=== PATIENT | male | born 2000 | race Two or more races ===

== ENCOUNTER 2022-01-22 16:00 | Observation (INO) ==
[2022-01-22 16:31] LABS: Basophils # (auto) 0.02 K/uL (0-0.2); Basophils % (auto) 0.2 %; Eosinophils # (auto) 0.19 K/uL (0-0.5); Eosinophils % (auto) 1.8 %; Hematocrit (blood only) 45.4 % (42-52); Hemoglobin 15.8 g/dL (14.0-18.0); Immature Granulocytes # (auto) 0.01 K/uL (0.00-0.02); Immature Granulocytes % (auto) 0.1 %; Lymphocytes % (auto) 14.1 %; Mean Corpuscular Hemoglobin 29.2 pg (25-34); Mean Corpuscular Hgb Conc 34.8 g/dL (32-36); Mean Corpuscular Volume 83.8 fL (80-100); Mean Platelet Volume 8.9 fL (7.4-10.4); Monocytes # (auto) 0.63 K/uL (0.11-0.59); Monocytes % (auto) 5.9 %; Neutrophils # (auto) 8.28 K/uL (1.4-6.5); Neutrophils % (auto) 77.9 %; Platelet Count 341 K/uL (130-400); RDW Coefficient of Variation 13.4 % (11.5-14.5); RDW Standard Deviation 40.3 fL (36.4-46.3); Red Blood Count 5.42 M/uL (4.7-6.1); White Blood Count 10.63 K/uL (4.8-10.8)
[2022-01-22] MEDS ORDERED: SODIUM CHLORIDE 0.9% 1000ML 2,000 ML IV ONE (16:44)
[2022-01-22] MEDS ORDERED: ONDANSETRON INJ 2 MG/ML 2 ML VIAL IV STA (16:44)
--- NOTE | 2022-01-22 16:47 | Emergency Department Note ---
Impression & Plan Acute pancreatitis, Abdominal pain, Nausea ED Provider Note NAME: JAY PRATT AGE: 21 SEX: M : 2000 ARRIVES VIA: Walk-In INFORMANT: Patient ED PROVIDER(S): Nathanael Valentine DO CHIEF COMPLAINT: abdominal pain HPI: Patient is a 21-year-old male who presents the ER for right mid/upper quadrant abdominal pain. Patient notes all of his symptoms started this morning when he woke up. His pain is about a 4 out of 10. He did take some Pepto- Bismol but believes he threw this back up. He denies any dysuria, urgency, or frequency. No diarrhea. He has not been around a bit has been sick. No previous abdominal surgeries. No other exacerbating or remitting factors. No fevers. ROS: See above HPI for pertinent positives & negatives. A total of 10 systems reviewed and were otherwise negative. PAST MEDICAL HISTORY:See Below PAST SURGICAL HISTORY:See Below FAMILY HISTORY:See Below SOCIAL HISTORY:See Below HOME MEDICATIONS:See Below ALLERGIES:See Below VITALS:See Below PHYSICAL EXAMINATION: GENERAL: Sitting up in bed, alert, well appearing, well nourished, no distress, non-toxic EYE EXAM: normal conjunctiva. OROPHARYNX: no exudate, no erythema, lips, buccal mucosa, and tongue normal and mucous membranes are moist NECK: supple, no nuchal rigidity, no adenopathy, non-tender LUNGS: Clear to auscultation. Normal chest wall mechanics HEART: no murmurs, S1 normal and S2 normal ABDOMEN: abdomen soft, mild tenderness in the right mid belly/epigastric region and right lower quadrant, normo-active bowel sounds, no masses, no rebound or guarding. UPPER EXTREMITIES: upper extremities are grossly normal. LOWER EXTREMITIES: No pitting edema. NEURO EXAM: Normal sensorium, cranial nerves II-XII grossly intact, normal speech, no gross weakness of arms, no gross weakness of legs. MEDICAL DECISION MAKING: Patient is a 21-year-old male who presents the ER for abdominal pain and nausea vomiting. IV was established blood work was obtained. Labs show no significant leukocytosis or anemia. BMP along with LFTs shows a mild transaminitis. T bili was normal. Lipase was 4 times upper limit at 480. UA was clean. Covid was negative. CT abdomen pelvis confirms pancreatitis. Patient was given IV fluids and morphine. He was updated bedside. Discussed with Dr. Jose Miguel Villarreal for further evaluation. Updated mom as well per the patient's request. Triage Nursing notes reviewed. Limited review of prior medical records performed Vital Signs: reviewed and remarkable for no significant abnormalities Differential diagnosis: Differential diagnoses includes but is not limited to gastritis, peptic ulcer disease, GERD, gallbladder disease, pancreatitis, small bowel obstruction, acute coronary syndrome, pericarditis, ischemic bowel, irritable bowel disease, irritable bowel syndrome, appendicitis, diverticulitis, malignancy, hernia, urinary tract infection, torsion, perforation, trauma, infectious. ER treatment provided: See below Diagnostics interpreted by me: ECG: none Cardiac Monitoring: An order was placed for continuous cardiac monitoring. The monitor shows a rate of 82 with sinus rhythm. Laboratory studies: As stated above and show below. Imaging studies: CT abdomen pelvis confirms pancreatitis Consultation(s): none Critical Care: None Past Med/Surg History Social History Smoking Status: Current every day smoker Tobacco Type: E-cigarettes / Vaping Preferred Language: Belgian Feels Safe at Home: Yes Results & Data (ED) Vital Signs Vital Signs - 24 hr 01/22/22 16:04 01/22/22 18:10 Temperature 36.2 C L Temperature Source Temporal Artery Scan Pulse Rate 86 Pulse Rate [Right Finger] 73 Pulse Rhythm Regular Pulse Strength Normal Respiratory Rate 20 16 Respiratory Effort / Characteristics Non-Labored Spontaneous Respiratory Depth Normal Respiratory Pattern Regular Blood Pressure 129/78 Blood Pressure [Right Arm] 126/70 Blood Pressure Mean 95 Blood Pressure Mean [Right Arm] 88 Blood Pressure Position Sitting Pulse Oximetry 96 97 Oxygen Delivery Method Room Air Sepsis Recent Fever Within 48 Hours No Sepsis New/Unexplained Change in Mental Status No Sepsis Action Taken by Nursing No Action Required Laboratory Data Result diagrams: 01/22/22 16:19 01/22/22 16:19 Lab Results 01/22/22 01/22/22 01/22/22 Range/Units 16:19 16:19 16:19 WBC 10.63 (4.8-10.8) K/uL RBC 5.42 (4.7-6.1) M/uL Hgb 15.8 (14.0-18.0) g/dL Hct 45.4 (42-52) % MCV 83.8 (80-100) fL MCH 29.2 (25-34) pg MCHC 34.8 (32-36) g/dL RDW Std Deviation 40.3 (36.4-46.3) fL RDW Coeff of Isabelle 13.4 (11.5-14.5) % Plt Count 341 (130-400) K/uL MPV 8.9 (7.4-10.4) fL Immature Gran % (Auto) 0.1 % Neut % (Auto) 77.9 % Lymph % (Auto) 14.1 % Reynolds % (Auto) 5.9 % Eos % (Auto) 1.8 % Baso % (Auto) 0.2 % Neut # (Auto) 8.28 H (1.4-6.5) K/uL Lymph # (Auto) 1.50 (1.2-3.4) K/uL Reynolds # (Auto) 0.63 H (0.11-0.59) K/uL Eos # (Auto) 0.19 (0-0.5) K/uL Baso # (Auto) 0.02 (0-0.2) K/uL Immature Gran # (Auto) 0.01 (0.00-0.02) K/uL Sodium 138 (136-145) mmol/L Potassium 3.9 (3.5-5.1) mmol/L Chloride 103 (98-107) mmol/L Carbon Dioxide 27 (21-32) mmol/L Anion Gap 8 (3-11) BUN 11 (6-23) mg/dl Creatinine 0.79 (0.6-1.4) mg/dl Est Cr Clr Drug Dosing 178.0 ml/min Est GFR ( Amer) > 150.0 ml/min Est GFR (Non-Af Amer) 130.2 ml/min BUN/Creatinine Ratio 13.9 (10-20) Glucose 98 (70-99(Fasting)) mg/dl Calcium 9.8 (8.5-10.1) mg/dl Total Bilirubin 0.6 (0.2-1.0) mg/dl AST 57 H (13-39) U/L ALT 70 H (7-52) U/L Alkaline Phosphatase 95 (34-104) U/L Total Protein 7.5 (6.0-8.3) gm/dl Albumin 4.7 (3.4-5.0) gm/dl Globulin 2.8 (2.5-4.0) gm/dl Albumin/Globulin Ratio 1.7 (0.9-2) Triglycerides 115 (0-150) mg/dl Lipase 479 H (11-82) U/L Urine Color Urine Appearance (Clear) Urine pH (4.5-7.5) Ur Specific Lapel (1.000-1.030) Urine Protein (Negative) Urine Glucose (UA) (Negative) Urine Ketones (Negative) Urine Blood (Negative) Urine Nitrite (Negative) Urine Bilirubin (Negative) Urine Urobilinogen (Negative) Ur Leukocyte Esterase (Negative) SARS-CoV-2, RNA, NAAT (NEGATIVE) 01/22/22 01/22/22 Range/Units 16:53 18:07 WBC (4.8-10.8) K/uL RBC (4.7-6.1) M/uL Hgb (14.0-18.0) g/dL Hct (42-52) % MCV (80-100) fL MCH (25-34) pg MCHC (32-36) g/dL RDW Std Deviation (36.4-46.3) fL RDW Coeff of Isabelle (11.5-14.5) % Plt Count (130-400) K/uL MPV (7.4-10.4) fL Immature Gran % (Auto) % Neut % (Auto) % Lymph % (Auto) % Reynolds % (Auto) % Eos % (Auto) % Baso % (Auto) % Neut # (Auto) (1.4-6.5) K/uL Lymph # (Auto) (1.2-3.4) K/uL Reynolds # (Auto) (0.11-0.59) K/uL Eos # (Auto) (0-0.5) K/uL Baso # (Auto) (0-0.2) K/uL Immature Gran # (Auto) (0.00-0.02) K/uL Sodium (136-145) mmol/L Potassium (3.5-5.1) mmol/L Chloride (98-107) mmol/L Carbon Dioxide (21-32) mmol/L Anion Gap (3-11) BUN (6-23) mg/dl Creatinine (0.6-1.4) mg/dl Est Cr Clr Drug Dosing ml/min Est GFR ( Amer) ml/min Est GFR (Non-Af Amer) ml/min BUN/Creatinine Ratio (10-20) Glucose (70-99(Fasting)) mg/dl Calcium (8.5-10.1) mg/dl Total Bilirubin (0.2-1.0) mg/dl AST (13-39) U/L ALT (7-52) U/L Alkaline Phosphatase (34-104) U/L Total Protein (6.0-8.3) gm/dl Albumin (3.4-5.0) gm/dl Globulin (2.5-4.0) gm/dl Albumin/Globulin Ratio (0.9-2) Triglycerides (0-150) mg/dl Lipase (11-82) U/L Urine Color Yellow Urine Appearance Clear (Clear) Urine pH 8.0 H (4.5-7.5) Ur Specific Lapel 1.012 (1.000-1.030) Urine Protein Negative (Negative) Urine Glucose (UA) Negative (Negative) Urine Ketones Negative (Negative) Urine Blood Negative (Negative) Urine Nitrite Negative (Negative) Urine Bilirubin Negative (Negative) Urine Urobilinogen Negative (Negative) Ur Leukocyte Esterase Negative (Negative) SARS-CoV-2, RNA, NAAT NEGATIVE (NEGATIVE) Administered Medications Lactated Ringer's (Lr) 1,000 mls @ 200 mls/hr IV .Q5H GERALDINE Stop: 02/21/22 20:59 Last Admin: 01/22/22 21:33 Dose: 200 mls/hr Documented by: [id number] Discontinued Medications Sodium Chloride (Nss 1000ml) 2,000 mls @ 999 mls/hr IV .Q2H1M ONE Stop: 01/22/22 18:44 Last Infusion: 01/22/22 18:07 Dose: 0 mls/hr Documented by: [id number] Admin: 01/22/22 16:54 Dose: 999 mls/hr Documented by: [id number] Ioversol (Optiray 320 100ml) 94 ml IV ONCE ONE Stop: 01/22/22 17:18 Last Admin: 01/22/22 17:18 Dose: 94 ml Documented by: [id number] Morphine Sulfate (Morphine Sulfate 4 Mg/Ml 1 Ml Carp\Vial) 4 mg IV NOW STA Stop: 01/22/22 18:09 Last Admin: 01/22/22 18:23 Dose: 4 mg Documented by: [id number] Ondansetron HCl (Ondansetron Inj 2 Mg/Ml 2 Ml Vial) 4 mg IV NOW STA Stop: 01/22/22 16:45 Last Admin: 01/22/22 16:54 Dose: 4 mg Documented by: [id number] Imaging Data Radiologist's Impression: Abdomen/Pelvis CT 01/22/22 16:44 CT SCAN OF THE ABDOMEN AND PELVIS WITH IV CONTRAST CLINICAL HISTORY: Right-sided abdominal pain. COMPARISON STUDY: No priors. TECHNIQUE: Following the IV administration of 94 cc of Optiray 320, CT scan of the abdomen and pelvis is performed from the lung bases to the proximal femora. Images are reviewed in the axial, sagittal, and coronal planes. IV contrast was administered without complication. A dose lowering technique was utilized adhering to the principles of ALARA. CT DOSE: 498.91 mGy.cm FINDINGS: Lung bases: The heart is normal in size and without pericardial effusion. The lung bases are clear. Liver: The contrast-enhanced liver is enlarged, measuring 20.5 cm in length. The liver demonstrates diminished attenuation consistent with hepatic steatosis. Fatty sparing is noted adjacent to gallbladder fossa. There is no intrahepatic biliary ductal dilatation. The hepatic veins and portal veins are patent. Gallbladder: Unremarkable. Spleen: Normal in size and attenuation. Pancreas: There is infiltration and fluid centered around the pancreatic head which appears edematous, with fluid tracking inferiorly in the intraperitoneal space. The gland enhances homogeneously, and the pancreatic duct is normal in caliber. No organized peripancreatic fluid collection is identified. The splenic vein is patent. Adrenal glands: Unremarkable. Kidneys: The contrast enhanced kidneys are normal in size and without hydron ephrosis. The kidneys enhance symmetrically. Abdominal vasculature: The abdominal aorta is normal in course and caliber. Bowel: There is no bowel obstruction. The appendix is well-visualized and normal. Peritoneum: No intraperitoneal free air is identified. There is trace free fluid in the pelvis. There is a fat-containing umbilical hernia. Lymphadenopathy: None. Pelvic viscera: The bladder is decompressed and appears circumferentially thick walled. The prostate and seminal vesicles are normal as visualized. Skeletal structures: No lytic or blastic lesions are seen. IMPRESSION: 1. Findings suggest acute pancreatitis. Correlate with clinical findings and serum amylase/lipase levels. 2. The gland enhances throughout and there is no organized peripancreatic fluid collection. 3. Trace free fluid in the pelvis is likely reactive. 3. Hepatomegaly and hepatic steatosis. 4. The bladder is decompressed and appears circumferentially thick walled. Correlate with clinical findings and urinalysis. 5. Additional findings as above. ACT 112: Negative or not required by law. Electronically signed by: Ethan Joseph M.D. 01/22/2022 5:44 PM Liver Ultrasound 01/22/22 18:48 ULTRASOUND RIGHT UPPER QUADRANT ABDOMEN CLINICAL HISTORY: Pancreatitis. Elevated hepatic transaminases. COMPARISON STUDY: Abdominal CT dated 01/22/2022. TECHNIQUE: Real-time, grayscale, and color flow sonography of the right upper quadrant of the abdomen was performed. Images are reviewed in the transverse and longitudinal planes. FINDINGS: Liver: The liver is top normal in size and demonstrates increased echotexture suggesting steatosis. There is no intrahepatic biliary ductal dilatation. The main portal vein is patent. Gallbladder: The gallbladder is normal in appearance. No gallstones are identified. There is no gallbladder wall thickening or pericholecystic fluid. A sonographic Pérez's sign is reportedly absent. The common bile duct measures up to 0.2 cm in diameter. Pancreas: Visualized portions of the pancreatic head and body are normal in appearance. The splenic vein is patent. Right kidney: Survey images of the right kidney demonstrate normal size and echotexture. There is no hydronephrosis. Ascites: None. IMPRESSION: 1. No gallstones are identified. 2. Mild hepatic steatosis. ACT 112: Negative or not required by law. Electronically signed by: Ethan Joseph M.D. 01/22/2022 8:27 PM Discharge Plan Visit Data Chief Complaint: Vomiting Stated Complaint: VOMITING, UPPER ABD PAIN ED Provider: Nathanael Valentine Discharge Problem: Acute pancreatitis, Abdominal pain, Nausea Patient Disposition: Admitted As Inpatient Discharge Instructions Interventions: ED Discharge Assessment Last Done: 01/22/22 19:51
[2022-01-22 16:49] LABS: Alanine Aminotransferase 70 U/L (7-52); Albumin Globulin Ratio 1.7 (0.9-2); Albumin Level 4.7 gm/dl (3.4-5.0); Alkaline Phosphatase 95 U/L (34-104); Anion Gap 8 (3-11); Aspartate Aminotransferase 57 U/L (13-39); BUN Creatinine Ratio 13.9 (10-20); Bilirubin,Total 0.6 mg/dl (0.2-1.0); Blood Urea Nitrogen 11 mg/dl (6-23); Calcium 9.8 mg/dl (8.5-10.1); Carbon Dioxide 27 mmol/L (21-32); Chloride 103 mmol/L (98-107); Est GFR (African American) > 150.0 ml/min; Est GFR (Non-African American) 130.2 ml/min; Globulin 2.8 gm/dl (2.5-4.0); Glucose 98 mg/dl (70-99(Fasting)); Lipase 479 U/L (11-82); Potassium 3.9 mmol/L (3.5-5.1); Sodium 138 mmol/L (136-145); Total Protein 7.5 gm/dl (6.0-8.3)
[2022-01-22 17:15] LABS: Appearance Urine Clear (Clear); Bilirubin Urine Negative (Negative); Blood Urine Negative (Negative); Color Urine Yellow; Glucose Urine UA Negative (Negative); Ketones Urine Negative (Negative); Leukocyte Esterase Urine Negative (Negative); Nitrite Urine Negative (Negative); Protein Urine Negative (Negative); Specific Gravity Urine 1.012 (1.000-1.030); Urobilinogen Urine Negative (Negative)
[2022-01-22] MEDS ORDERED: OPTIRAY 320 100ml IV ONE (17:17)
--- NOTE | 2022-01-22 17:46 | CT Scan Report ---
CT SCAN OF THE ABDOMEN AND PELVIS WITH IV CONTRAST CLINICAL HISTORY: Right-sided abdominal pain. COMPARISON STUDY: No priors. TECHNIQUE: Following the IV administration of 94 cc of Optiray 320, CT scan of the abdomen and pelvi s is performed from the lung bases to the proximal femora. Images are reviewed in the axial, sagittal , and coronal planes. IV contrast was administered without complication. A dose lowering technique wa s utilized adhering to the principles of ALARA. CT DOSE: 498.91 mGy.cm FINDINGS: Lung bases: The heart is normal in size and without pericardial effusion. The lung bases are clear. Liver: The contrast-enhanced liver is enlarged, measuring 20.5 cm in length. The liver demonstrates d iminished attenuation consistent with hepatic steatosis. Fatty sparing is noted adjacent to gallbladd er fossa. There is no intrahepatic biliary ductal dilatation. The hepatic veins and portal veins are patent. Gallbladder: Unremarkable. Spleen: Normal in size and attenuation. Pancreas: There is infiltration and fluid centered around the pancreatic head which appears edematous , with fluid tracking inferiorly in the intraperitoneal space. The gland enhances homogeneously, and the pancreatic duct is normal in caliber. No organized peripancreatic fluid collection is identified. The splenic vein is patent. Adrenal glands: Unremarkable. Kidneys: The contrast enhanced kidneys are normal in size and without hydronephrosis. The kidneys enh ance symmetrically. Abdominal vasculature: The abdominal aorta is normal in course and caliber. Bowel: There is no bowel obstruction. The appendix is well-visualized and normal. Peritoneum: No intraperitoneal free air is identified. There is trace free fluid in the pelvis. There is a fat-containing umbilical hernia. Lymphadenopathy: None. Pelvic viscera: The bladder is decompressed and appears circumferentially thick walled. The prostate and seminal vesicles are normal as visualized. Skeletal structures: No lytic or blastic lesions are seen. IMPRESSION: 1. Findings suggest acute pancreatitis. Correlate with clinical findings and serum amylase/lipase lev els. 2. The gland enhances throughout and there is no organized peripancreatic fluid collection. 3. Trace free fluid in the pelvis is likely reactive. 3. Hepatomegaly and hepatic steatosis. 4. The bladder is decompressed and appears circumferentially thick walled. Correlate with clinical fi ndings and urinalysis. 5. Additional findings as above. ACT 112: Negative or not required by law. Electronically signed by: Ethan Joseph M.D. 01/22/2022 5:44 PM
[2022-01-22] MEDS ORDERED: MoRPHine SULFATE 4 MG/ML 1 ML CARP\\VIAL IV STA (18:08)
--- NOTE | 2022-01-22 18:52 | History & Physical Report ---
Date of Service January 22, 2022 Assessment & Plan (1) Acute pancreatitis: Plan: Suspect alcohol induced since he was just on Spring break and triglycerides and no gallstones or CBD dilatation on CT for US liver. NSS 2L bolus given in ER. Continue IV fluids with LR @ 200ml/hr overnight Can start on clear liquids Repeat labs in AM Plan: VTE Prophylaxis - low risk Diet - clear liquids Disposition - observation to med/surg Admission and Anticipated Discharge Date Admission Date: January 22, 2022 History of Present Illness Chief Complaint: Abdominal pain [facility] Jeffery Sewell is a 21 year old male who presents to the ER with nausea, vomiting and abdominal pain. He reports this started this morning when he woke up. Abdominal pain is epigastric, worse on palpation, no radiation, severity 4/10. No change in bowels, melena or bright red blood in stool. In the ER CT and elevated lipase concerning for acute pancreatitis. He reports no prior episodes of this. No autoimmune conditions or family history. He does note excessive alcohol use over spring but not abdominal pain during that time. He was referred to medicine for admission and ongoing management of pancreatitis. Past Med/Surg History Social History Smoking Status: Never smoker Tobacco Type: E-cigarettes / Vaping Hx Alcohol Use: Yes Hx Substance Use: No Preferred Language: [place] Communication Ability: Effective Ditch Worker Required: No Beliefs That Will Affect Care: None Current Living Situation: Other Current Living Situation Comment: college student, has roommate Other Information That Helps Us Care for You: No Feels Safe at Home: Yes Safety Concerns: Feels Safe At This Time Assistive Devices: None Review of Systems Review of Systems: All systems reviewed & are unremarkable except as noted in HPI & below Physical Exam Constitutional: WD/WN, vitals as above Eyes: + anicteric sclerae; normal pupil size Respiratory: normal respiratory effort, lungs clear to auscultation Cardiovascular: RRR, no murmur, no edema Gastrointestinal (Abdomen): Inspection/Auscultation: normal bowel sounds Percussion/Palpation: + abdomen tender (epigastric) and abdomen soft; no guarding and abdomen not rigid Musculoskeletal: no cyanosis or clubbing, extremities motor strength 5/5 Skin: no rashes, warm and dry Neurologic: moves all extremities and awake; not confused Psychiatric: A+Ox3, euthymic affect Genitourinary: no CVA tenderness Results & Data Results & Data ([facility]) Vital Signs (Past 12 Hours) Vital Signs Temp Pulse Pulse Resp BP BP Pulse Ox 01/22/22 18:10 73 16 126/70 97 01/22/22 16:04 36.2 C L 86 20 129/[address] SCAN OF THE ABDOMEN AND PELVIS WITH IV CONTRAST CLINICAL HISTORY: Right-sided abdominal pain. COMPARISON STUDY: No priors. TECHNIQUE: Following the IV administration of 94 cc of Optiray 320, CT scan of the abdomen and pelvis is performed from the lung bases to the proximal femora. Images are reviewed in the axial, sagittal, and coronal planes. IV contrast was administered without complication. A dose lowering technique was utilized adhering to the principles of ALARA. CT DOSE: 498.91 mGy.cm FINDINGS: Lung bases: The heart is normal in size and without pericardial effusion. The lung bases are clear. Liver: The contrast-enhanced liver is enlarged, measuring 20.5 cm in length. The liver demonstrates diminished attenuation consistent with hepatic steatosis. Fatty sparing is noted adjacent to gallbladder fossa. There is no intrahepatic biliary ductal dilatation. The hepatic veins and portal veins are patent. Gallbladder: Unremarkable. Spleen: Normal in size and attenuation. Pancreas: There is infiltration and fluid centered around the pancreatic head which appears edematous, with fluid tracking inferiorly in the intraperitoneal space. The gland enhances homogeneously, and the pancreatic duct is normal in caliber. No organized peripancreatic fluid collection is identified. The splenic vein is patent. Adrenal glands: Unremarkable. Kidneys: The contrast enhanced kidneys are normal in size and without hydronephrosis. The kidneys enhance symmetrically. Abdominal vasculature: The abdominal aorta is normal in course and caliber. Bowel: There is no bowel obstruction. The appendix is well-visualized and normal. Peritoneum: No intraperitoneal free air is identified. There is trace free fluid in the pelvis. There is a fat-containing umbilical hernia. Lymphadenopathy: None. Pelvic viscera: The bladder is decompressed and appears circumferentially thick walled. The prostate and seminal vesicles are normal as visualized. Skeletal structures: No lytic or blastic lesions are seen. IMPRESSION: 1. Findings suggest acute pancreatitis. Correlate with clinical findings and serum amylase/lipase levels. 2. The gland enhances throughout and there is no organized peripancreatic fluid collection. 3. Trace free fluid in the pelvis is likely reactive. 3. Hepatomegaly and hepatic steatosis. 4. The bladder is decompressed and appears circumferentially thick walled. Correlate with clinical findings and urinalysis. 5. Additional findings as above. Medications Administered ER Medications Given: NSS 2L bolus Ondansetron 4mg IV Morphine 4mg IV Code Status & VTE Plan Code Status Full VTE Prophylaxis Plan VTE Prophylaxis will be ordered: No Reason for no VTE drug order: Treatment not indicated Reason for no VTE mechanical prophylaxis: Treatment not indicated PG Care Time/CCT Total # of Minutes Spent Total Time Spent with Patient: Total time spent is greater than 50% in coordination of care (as documented) at patient's floor/unit and/or counseling patient: Coding Level of Care Code INT OBSERVATION CARE 50M LVL 2 Diagnoses Acute pancreatitis K85.90
--- NOTE | 2022-01-22 20:29 | Ultrasound Report ---
ULTRASOUND RIGHT UPPER QUADRANT ABDOMEN CLINICAL HISTORY: Pancreatitis. Elevated hepatic transaminases. COMPARISON STUDY: Abdominal CT dated 01/22/2022. TECHNIQUE: Real-time, grayscale, and color flow sonography of the right upper quadrant of the abdomen was performed. Images are reviewed in the transverse and longitudinal planes. FINDINGS: Liver: The liver is top normal in size and demonstrates increased echotexture suggesting steatosis. T here is no intrahepatic biliary ductal dilatation. The main portal vein is patent. Gallbladder: The gallbladder is normal in appearance. No gallstones are identified. There is no gallb ladder wall thickening or pericholecystic fluid. A sonographic Pérez's sign is reportedly absent. Th e common bile duct measures up to 0.2 cm in diameter. Pancreas: Visualized portions of the pancreatic head and body are normal in appearance. The splenic v ein is patent. Right kidney: Survey images of the right kidney demonstrate normal size and echotexture. There is no hydronephrosis. Ascites: None. IMPRESSION: 1. No gallstones are identified. 2. Mild hepatic steatosis. ACT 112: Negative or not required by law. Electronically signed by: Ethan Joseph M.D. 01/22/2022 8:27 PM
[2022-01-22] MEDS ORDERED: ONDANSETRON INJ 2 MG/ML 2 ML VIAL IV PRN (21:29)
[2022-01-22] MEDS ORDERED: HYDROmorphone INJ 0.5 MG/0.5 ML SYR IV PRN (21:29)
[2022-01-22] MEDS: LACTATED RINGER'S 1,000 ML IV SCH (21:33)
[2022-01-23] MEDS: LACTATED RINGER'S 1,000 ML IV SCH ×5 (02:54→22:58)
[2022-01-23 06:13] LABS: Basophils # (auto) 0.03 K/uL (0-0.2); Basophils % (auto) 0.3 %; Eosinophils # (auto) 0.24 K/uL (0-0.5); Eosinophils % (auto) 2.4 %; Hematocrit (blood only) 40.5 % (42-52); Hemoglobin 13.9 g/dL (14.0-18.0); Immature Granulocytes # (auto) 0.01 K/uL (0.00-0.02); Immature Granulocytes % (auto) 0.1 %; Lymphocytes # (auto) 1.95 K/uL (1.2-3.4); Lymphocytes % (auto) 19.8 %; Mean Corpuscular Hemoglobin 29.1 pg (25-34); Mean Corpuscular Hgb Conc 34.3 g/dL (32-36); Mean Corpuscular Volume 84.7 fL (80-100); Mean Platelet Volume 8.5 fL (7.4-10.4); Monocytes # (auto) 0.76 K/uL (0.11-0.59); Monocytes % (auto) 7.7 %; Neutrophils # (auto) 6.88 K/uL (1.4-6.5); Neutrophils % (auto) 69.7 %; Platelet Count 248 K/uL (130-400); RDW Coefficient of Variation 13.5 % (11.5-14.5); RDW Standard Deviation 41.5 fL (36.4-46.3); Red Blood Count 4.78 M/uL (4.7-6.1); White Blood Count 9.87 K/uL (4.8-10.8)
[2022-01-23 06:36] LABS: Alanine Aminotransferase 59 U/L (7-52); Albumin Globulin Ratio 1.7 (0.9-2); Albumin Level 3.8 gm/dl (3.4-5.0); Alkaline Phosphatase 78 U/L (34-104); Anion Gap 5 (3-11); Aspartate Aminotransferase 42 U/L (13-39); BUN Creatinine Ratio 12.3 (10-20); Bilirubin,Total 0.7 mg/dl (0.2-1.0); Blood Urea Nitrogen 8 mg/dl (6-23); Calcium 9.1 mg/dl (8.5-10.1); Carbon Dioxide 27 mmol/L (21-32); Chloride 104 mmol/L (98-107); Creatinine Clr Calc Pharmacy 216.1 ml/min; Est GFR (African American) > 150.0 ml/min; Globulin 2.2 gm/dl (2.5-4.0); Glucose 93 mg/dl (70-99(Fasting)); Lipase 199 U/L (11-82); Potassium 3.7 mmol/L (3.5-5.1); Sodium 136 mmol/L (136-145)
--- NOTE | 2022-01-23 21:31 | Hospitalist Progress Note ---
Date of Service January 23, 2022 Assessment & Plan (1) Acute pancreatitis: Plan: Acute pancreatitis secondary likely to alcohol since he was just on Spring break and triglycerides and no gallstones or CBD dilatation on CT for US liver. NSS 2L bolus given in ER. Continue IV fluids with LR @ 200ml/hr tolerating clears will increase diet to low fat. lipase is downtrending. Vitals signs are stable, Does not meet criteria for severe pancreatitis. Repeat labs in AM Updated mother on the phone Plan: VTE Prophylaxis - low risk Diet - low fat Disposition - observation to med/surg Admission and Anticipated Discharge Date Admission Date: January 22, 2022 Subjective Patient reports his pain has improved, and he is tolerating his current diet. Patient also reports having a rhaspy voice, but this predates current problem. Ongoing for past 2 weeks. Review of Systems Review of Systems: All systems reviewed & are unremarkable except as noted in HPI & below Physical Exam Physical Exam: Constitutional: WD/WN, vitals as above Eyes: + anicteric sclerae; normal pupil size Respiratory: normal respiratory effort, lungs clear to auscultation Cardiovascular: RRR, no murmur, no edema Gastrointestinal (Abdomen): Inspection/Auscultation: normal bowel sounds Percussion/Palpation: + abdomen decreased tenderness (epigastric) and abdomen soft; no guarding and abdomen not rigid Musculoskeletal: no cyanosis or clubbing, extremities motor strength 5/5 Skin: no rashes, warm and dry Neurologic: moves all extremities and awake; not confused Psychiatric: A+Ox3, euthymic affect Genitourinary: no CVA tenderness Results & Data Results & Data ([facility]) Vital Signs (Past 12 Hours) Vital Signs Temp Pulse Resp BP Pulse Ox 01/23/22 15:44 36.7 C 75 18 131/73 94 PG Care Time/CCT Total # of Minutes Spent Total Time Spent with Patient: Total time spent is greater than 50% in coordination of care (as documented) at patient's floor/unit and/or counseling patient: Coding Level of Care Code 35130 Subseq Obs Care Lvl 3 Diagnoses Acute pancreatitis K85.90 Acute pancreatitis complication: unspecified Pancreatitis type: unspecified pancreatitis type (1) Acute pancreatitis Acute pancreatitis complication: unspecified Pancreatitis type: unspecified pancreatitis type Qualified Code(s): K85.90 - Acute pancreatitis without necrosis or infection, unspecified
[2022-01-24] MEDS: LACTATED RINGER'S 1,000 ML IV SCH ×2 (03:51→08:10)
[2022-01-24 07:04] LABS: BUN Creatinine Ratio 10.7 (10-20); C Reactive Protein 3.17 mg/dl (0-0.5); Calcium 9.2 mg/dl (8.5-10.1); Creatinine Clr Calc Pharmacy 167.2 ml/min; Est GFR (African American) 147.1 ml/min; Est GFR (Non-African American) 126.9 ml/min; Potassium 3.7 mmol/L (3.5-5.1)
== END 2022-01-24 16:30 | disposition home or self-care (01) ==
LOC: ED 16:00 → 3N 16:00 → SUATTDRO 18:51 → 3N 19:51

== ENCOUNTER 2023-01-14 12:37 | Inpatient (IN) ==
[2023-01-14] MEDS ORDERED: SODIUM CHLORIDE 0.9% 1000ML 1,000 ML IV ONE ×2 (14:25→16:08)
--- NOTE | 2023-01-14 14:27 | Emergency Department Note ---
Impression & Plan Acute pancreatitis ADMIT ED Provider Note HPI: The patient is a 22-year-old male with history of pancreatitis, presents the emergency department with a chief complaint of epigastric pain that began earlier today. Patient denies any vomiting, denies any chest pain or shortness of breath. Patient states that his previous episode of pancreatitis was related to alcohol use, states he has been drinking alcohol socially and did drink on and Saturday night of last week. On arrival here to the ED the patient is otherwise in no acute distress, he is hemodynamically stable, he is saturating well on room air on arrival, afebrile. ROS: - Per HPI *Outpatient medications and allergy history reviewed. *Pertinent external medical records reviewed. PE: General: Alert HEENT: Normocephalic, trachea midline Eyes: Extraocular eye movement is intact, no scleral erythema Pulmonary: Clear to auscultation bilaterally, no wheezing Cardio: Regular rate and rhythm GI: Abdomen is soft to palpation, moderate tenderness over the epigastrium to palpation : No suprapubic tenderness MSK: No evidence of trauma or malformation of the extremities, no edema Skin: No evidence of rash Neuro: Alert, no focal deficits Psychiatric: Cooperative administrative clerk: (As interpreted by myself): - An order was placed for continuous cardiac monitoring - Patient was noted to be in sinus rhythm with a rate of 78 Interventions provided in ED: -IV fluid bolus Differential Diagnosis: Acute cholecystitis, pancreatitis, alcohol induced gastritis, peptic ulcer disease, acute appendicitis, amongst other potential pathologies. Medical Decision Making: Patient presented to the emergency department the chief complaint of epigastric pain, patient states the pain is been ongoing since earlier this morning. On arrival here to the ED he is in no acute distress, states the pain is still present, he has some tenderness on my exam but no guarding or rigidity. IV was established, patient was given IV fluid bolus, declined analgesia. CT imaging of the abdomen pelvis was obtained that shows evidence of pancreatic inflammation/acute pancreatitis. Bile ducts appear to be normal in size, gallbladder is unremarkable. No transaminitis, bilirubin is normal. Lipase is elevated at 274. On my reassessment following IV fluid bolus patient remained stable appearing, given CT imaging findings and lab work results, I do have concern for acute pancreatitis, patient will be admitted to the hospitalist service for further management. His bile ducts appear normal in size on CT imaging, feel this is likely alcohol induced, patient states he was drinking alcohol heavily in the past several days. Given that this is his second bout with pancreatitis he was advised on complete cessation. Patient expressed understanding. [facility] hospitalist service was consulted for admission. Consultants: Hospitalist service, Dr. Krishnamurthy Disposition discussion held by myself with: Patient Diagnosis: 1. Acute pancreatitis 2. Epigastric pain, acute Disposition: Admission Enrrique Celis DO Emergency Medicine Past Med/Surg History Medical History (Updated 01/14/23 @ 15:49 by Chao Kelly PA-C) Abdominal pain Acute pancreatitis Nausea Social History Smoking Status: Current every day smoker Tobacco Type: E-cigarettes / Vaping Hx Alcohol Use: Yes Hx Substance Use: No Preferred Language: [place] Islander Communication Ability: Effective Tooling Supervisor Required: No Beliefs That Will Affect Care: None Current Living Situation: Other Current Living Situation Comment: college student, has roommate Feels Safe at Home: Yes Assistive Devices: None Results & Data (ED) Vital Signs Vital Signs - 24 hr 01/14/23 12:55 01/14/23 14:37 Temperature 36.4 C L Temperature Source Temporal Artery Scan Pulse Rate 74 Pulse Rhythm Regular Respiratory Rate 16 20 Respiratory Effort / Characteristics Non-Labored Spontaneous Non-Labored Respiratory Depth Normal Normal Respiratory Pattern Regular Blood Pressure 122/77 Blood Pressure [Left Arm] 119/59 L Blood Pressure Mean 92 Blood Pressure Mean [Left Arm] 79 Pulse Oximetry 97 97 Oxygen Delivery Method Room Air Room Air Sepsis Recent Fever Within 48 Hours No Sepsis New/Unexplained Change in Mental Status No Sepsis Action Taken by Nursing No Action Required Laboratory Data 01/14/23 14:16 01/14/23 14:16 Lab Results 01/14/23 01/14/23 Range/Units 14:16 14:16 WBC 9.37 (4.8-10.8) K/ul RBC 5.46 (4.70-6.10) M/uL Hgb 15.8 (14.0-18.0) g/dl Hct 47.0 (42.0-52.0) % MCV 86.1 (80.0-100.0) fL MCH 28.9 (25.0-34.0) pg MCHC 33.6 (32.0-36.0) g/dL RDW Std Deviation 41.0 (36.4-46.3) fL RDW Coeff of Isabelle 13.1 (11.5-14.5) % Plt Count 331 (130-400) K/uL MPV 9.2 L (9.4-12.4) fL Immature Gran % (Auto) 0.2 % Neut % (Auto) 72.3 % Lymph % (Auto) 20.6 % Izard % (Auto) 5.7 % Eos % (Auto) 0.9 % Baso % (Auto) 0.3 % Neut # (Auto) 6.78 H (1.40-6.50) K/uL Lymph # (Auto) 1.93 (1.2-3.4) K/uL Izard # (Auto) 0.53 (0.11-0.59) K/uL Eos # (Auto) 0.08 (0-0.50) K/uL Baso # (Auto) 0.03 (0-0.2) K/uL Immature Gran # (Auto) 0.02 (0.01-0.20) K/uL Sodium 140 (136-145) mmol/L Potassium 3.9 (3.5-5.1) mmol/L Chloride 104 (98-107) mmol/L Carbon Dioxide 31 (21-32) mmol/L Anion Gap 5 (3-11) BUN 12 (6-23) mg/dl Creatinine 0.93 (0.6-1.4) mg/dl Est Cr Clr Drug Dosing 139.1 ml/min Est GFR ( Amer) 136.5 ml/min Est GFR (Non-Af Amer) 117.8 ml/min BUN/Creatinine Ratio 12.9 (10-20) Glucose 95 (70-99(Fasting)) mg/dl Calcium 9.8 (8.5-10.1) mg/dl Total Bilirubin 0.9 (0.2-1.0) mg/dl AST 34 (13-39) U/L ALT 33 (7-52) U/L Alkaline Phosphatase 76 (34-104) U/L Total Protein 7.9 (6.0-8.3) gm/dl Albumin 5.1 H (3.4-5.0) gm/dl Globulin 2.8 (2.5-4.0) gm/dl Albumin/Globulin Ratio 1.8 (0.9-2) Lipase 274 H (11-82) U/L Administered Medications Discontinued Medications Sodium Chloride (Nss 1000ml) 1,000 mls @ 999 mls/hr IV .Q1H1M ONE Stop: 01/14/23 15:25 Last Admin: 01/14/23 14:36 Dose: 999 mls/hr Documented By: CGK Ioversol (Optiray 350 100ml) 85 ml IV ONCE ONE Stop: 01/14/23 15:19 Last Admin: 01/14/23 15:18 Dose: 85 ml Documented By: [facility] Imaging Data Radiologist's Impression: Abdomen/Pelvis CT 01/14/23 14:25 CT SCAN OF THE ABDOMEN AND PELVIS WITH IV CONTRAST CLINICAL HISTORY: Epigastric abdominal pain. COMPARISON STUDY: Abdominal CT dated 01/22/2022. TECHNIQUE: Following the IV administration of 85 cc of Optiray 350, CT scan of the abdomen and pelvis is performed from the lung bases to the proximal femora. Images are reviewed in the axial, sagittal, and coronal planes. IV contrast was administered without complication. A dose lowering technique was utilized adhering to the principles of ALARA. CT DOSE: 428.08 mGy.cm FINDINGS: Lung bases: The heart is normal in size and without pericardial effusion. The lung bases are clear. Liver: The contrast-enhanced liver is normal in size, contour, and attenuation. There is no intrahepatic biliary ductal dilatation. The hepatic veins and portal veins are patent. Gallbladder: Unremarkable. Spleen: Normal in size and attenuation. Pancreas: There is infiltration and fluid identified around the pancreatic head. The gland enhances throughout. The duct is normal in caliber. Splenic vein is patent. No organized peripancreatic fluid collection is identified. Adrenal glands: Unremarkable. Kidneys: The contrast enhanced kidneys are normal in size and without hydronephr osis. The kidneys enhance symmetrically. Abdominal vasculature: The abdominal aorta is normal in course and caliber. Bowel: The small bowel and colon are normal in course and caliber. The appendix is well-visualized and normal. Peritoneum: There is no intraperitoneal free air or abdominal ascites. There is a fat-containing umbilical hernia. Lymphadenopathy: None. Pelvic viscera: The bladder, prostate, and seminal vesicles are normal as visualized. Skeletal structures: No lytic or blastic lesions are seen. Sclerotic change is noted in the pubic symphysis. IMPRESSION: 1. There is evidence of acute pancreatitis. Correlate with clinical and laboratory findings. 2. The pancreas enhances throughout. No organized peripancreatic fluid collection is identified. 3. Additional findings as above. ACT 112: Negative or not required by law. Electronically signed by: Ethan Joseph M.D. 01/14/2023 3:26 PM Discharge Plan Visit Data Chief Complaint: Abdominal Pain Stated Complaint: CHEST/UPPER ABDOMINAL PAIN ED Provider: Enrrique Celis Discharge Problem: Acute pancreatitis Patient Disposition: Admitted As Inpatient Forms Stand Alone Forms: [facility] Referrals Referrals: [place],[facility] [Primary Care Provider] -
[2023-01-14 14:50] LABS: Basophils # (auto) 0.03 K/uL (0-0.2); Basophils % (auto) 0.3 %; Eosinophils # (auto) 0.08 K/uL (0-0.50); Eosinophils % (auto) 0.9 %; Hemoglobin 15.8 g/dl (14.0-18.0); Immature Granulocytes # (auto) 0.02 K/uL (0.01-0.20); Immature Granulocytes % (auto) 0.2 %; Lymphocytes # (auto) 1.93 K/uL (1.2-3.4); Lymphocytes % (auto) 20.6 %; Mean Corpuscular Hemoglobin 28.9 pg (25.0-34.0); Mean Corpuscular Hgb Conc 33.6 g/dL (32.0-36.0); Mean Corpuscular Volume 86.1 fL (80.0-100.0); Mean Platelet Volume 9.2 fL (9.4-12.4); Monocytes # (auto) 0.53 K/uL (0.11-0.59); Monocytes % (auto) 5.7 %; Neutrophils # (auto) 6.78 K/uL (1.40-6.50); Neutrophils % (auto) 72.3 %; Platelet Count 331 K/uL (130-400); RDW Coefficient of Variation 13.1 % (11.5-14.5); Red Blood Count 5.46 M/uL (4.70-6.10); White Blood Count 9.37 K/ul (4.8-10.8)
[2023-01-14 15:01] LABS: Albumin Globulin Ratio 1.8 (0.9-2); Albumin Level 5.1 gm/dl (3.4-5.0); BUN Creatinine Ratio 12.9 (10-20); Bilirubin,Total 0.9 mg/dl (0.2-1.0); Calcium 9.8 mg/dl (8.5-10.1); Creatinine Clr Calc Pharmacy 139.1 ml/min; Est GFR (African American) 136.5 ml/min; Est GFR (Non-African American) 117.8 ml/min; Globulin 2.8 gm/dl (2.5-4.0); Potassium 3.9 mmol/L (3.5-5.1); Total Protein 7.9 gm/dl (6.0-8.3)
[2023-01-14] MEDS ORDERED: OPTIRAY 350 100ml IV ONE (15:18)
--- NOTE | 2023-01-14 15:28 | CT Scan Report ---
CT SCAN OF THE ABDOMEN AND PELVIS WITH IV CONTRAST CLINICAL HISTORY: Epigastric abdominal pain. COMPARISON STUDY: Abdominal CT dated 01/22/2022. TECHNIQUE: Following the IV administration of 85 cc of Optiray 350, CT scan of the abdomen and pelvi s is performed from the lung bases to the proximal femora. Images are reviewed in the axial, sagittal , and coronal planes. IV contrast was administered without complication. A dose lowering technique wa s utilized adhering to the principles of ALARA. CT DOSE: 428.08 mGy.cm FINDINGS: Lung bases: The heart is normal in size and without pericardial effusion. The lung bases are clear. Liver: The contrast-enhanced liver is normal in size, contour, and attenuation. There is no intrahepa tic biliary ductal dilatation. The hepatic veins and portal veins are patent. Gallbladder: Unremarkable. Spleen: Normal in size and attenuation. Pancreas: There is infiltration and fluid identified around the pancreatic head. The gland enhances t hroughout. The duct is normal in caliber. Splenic vein is patent. No organized peripancreatic fluid c ollection is identified. Adrenal glands: Unremarkable. Kidneys: The contrast enhanced kidneys are normal in size and without hydronephrosis. The kidneys enh ance symmetrically. Abdominal vasculature: The abdominal aorta is normal in course and caliber. Bowel: The small bowel and colon are normal in course and caliber. The appendix is well-visualized a nd normal. Peritoneum: There is no intraperitoneal free air or abdominal ascites. There is a fat-containing umbi lical hernia. Lymphadenopathy: None. Pelvic viscera: The bladder, prostate, and seminal vesicles are normal as visualized. Skeletal structures: No lytic or blastic lesions are seen. Sclerotic change is noted in the pubic sym physis. IMPRESSION: 1. There is evidence of acute pancreatitis. Correlate with clinical and laboratory findings. 2. The pancreas enhances throughout. No organized peripancreatic fluid collection is identified. 3. Additional findings as above. ACT 112: Negative or not required by law. Electronically signed by: Ethan Joseph M.D. 01/14/2023 3:26 PM
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
[2023-01-14] MEDS ORDERED: MoRPHine SULFATE 4 MG/ML 1 ML CARP\\VIAL IV STA (16:15)
[2023-01-14] MEDS ORDERED: ONDANSETRON INJ 2 MG/ML 2 ML VIAL IV STA (16:15)
[2023-01-14 16:16] LABS: Appearance Urine Clear (Clear); Bilirubin Urine Negative (Negative); Blood Urine Negative (Negative); Color Urine Yellow; Glucose Urine UA Negative (Negative); Ketones Urine Negative (Negative); Leukocyte Esterase Urine Negative (Negative); Nitrite Urine Negative (Negative); Protein Urine Negative (Negative); Specific Gravity Urine 1.008 (1.000-1.030); Urobilinogen Urine Negative (Negative)
[2023-01-14] MEDS ORDERED: MoRPHine SULFATE 2 MG/ML CARP IV PRN (16:16)
[2023-01-14] MEDS ORDERED: MoRPHine SULFATE 4 MG/ML 1 ML CARP\\VIAL IV PRN ×2 (16:16→22:00)
[2023-01-14] MEDS: LACTATED RINGER'S 1,000 ML IV SCH (17:47)
[2023-01-14] MEDS ORDERED: MELATONIN 3 MG TAB PO PRN (21:52)
[2023-01-15] MEDS: LACTATED RINGER'S 1,000 ML IV SCH ×2 (02:09→10:06)
[2023-01-15 07:43] LABS: Basophils # (auto) 0.03 K/uL (0-0.2); Basophils % (auto) 0.4 %; Eosinophils # (auto) 0.18 K/uL (0-0.50); Eosinophils % (auto) 2.4 %; Hematocrit (blood only) 42.3 % (42.0-52.0); Immature Granulocytes # (auto) 0.02 K/uL (0.01-0.20); Immature Granulocytes % (auto) 0.3 %; Lymphocytes # (auto) 2.24 K/uL (1.2-3.4); Lymphocytes % (auto) 29.7 %; Mean Corpuscular Hemoglobin 28.9 pg (25.0-34.0); Mean Corpuscular Hgb Conc 33.1 g/dL (32.0-36.0); Mean Corpuscular Volume 87.4 fL (80.0-100.0); Mean Platelet Volume 9.1 fL (9.4-12.4); Monocytes # (auto) 0.64 K/uL (0.11-0.59); Monocytes % (auto) 8.5 %; Neutrophils # (auto) 4.42 K/uL (1.40-6.50); Neutrophils % (auto) 58.7 %; Platelet Count 270 K/uL (130-400); RDW Coefficient of Variation 13.1 % (11.5-14.5); RDW Standard Deviation 41.9 fL (36.4-46.3); Red Blood Count 4.84 M/uL (4.70-6.10); White Blood Count 7.53 K/ul (4.8-10.8)
[2023-01-15 07:57] LABS: Albumin Globulin Ratio 1.8 (0.9-2); Albumin Level 4.1 gm/dl (3.4-5.0); BUN Creatinine Ratio 11.5 (10-20); Bilirubin,Total 1.1 mg/dl (0.2-1.0); Calcium 9.3 mg/dl (8.5-10.1); Creatinine Clr Calc Pharmacy 148.7 ml/min; Est GFR (Non-African American) 124.2 ml/min; Globulin 2.3 gm/dl (2.5-4.0); Magnesium 1.9 mg/dl (1.7-2.4); Potassium 3.7 mmol/L (3.5-5.1); Total Protein 6.4 gm/dl (6.0-8.3)
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
== END 2023-01-15 15:05 | disposition home or self-care (01) | DRG 440 ==
LOC: ED 12:37 → 2W 16:15 → SUATTDRO 16:15 → 2W 17:28